=== PATIENT | male | born 1945 | race Caucasian/White ===

== ENCOUNTER → 2020-07-11 | Outpatient (CLI) | payer MEDICARE, OTHER ==
--- NOTE | 2020-07-11 13:41 | REP ---
INDICATION: ABDOMINAL PAIN, CONSTIPATION. COMPARISON: None. FINDINGS: Supine and upright views of the abdomen show the intestinal gas pattern to be nonspecific. Gas and stool is seen throughout the colon within the rectosigmoid region. The organ silhouettes insofar as delineated appear unremarkable. No abdominal calcific densities are seen within the abdomen or pelvis. The accompanying single frontal view of the chest shows no free subdiaphragmatic air, cardiomegaly, infiltrates or effusions. There is, however, a nodule in the right lung upper lobe superimposed over the anterior end of the 1st rib and the clavicle. IMPRESSION: Nonspecific intestinal gas pattern. Lung finding as described above. Contrast enhanced chest CT recommended <Electronically signed by Chalino Newman > 07/11/20 2229
== END ==
LOC: M WUC 13:19
PROVIDERS: ATTEND Physician Assistant
DX: R91.1 Solitary pulmonary nodule (principal); K59.00 Constipation, unspecified; R10.9 Unspecified abdominal pain

== ENCOUNTER 2024-11-24 17:54 | Emergency (ER) | payer MEDICARE, OTHER ==
[~2024-11-24] VITALS: Ht 182.9 cm; Wt 81.6 kg
[2024-11-24] MEDS ORDERED: LISI20TA33 PO (18:13)
[2024-11-24] MEDS ORDERED: SIMV10TA21 PO (18:13)
[2024-11-24] MEDS: ACETAMINOPHEN 325 MG TAB PO ONE (19:40)
[2024-11-24 22:16] LABS: KETONE, URINE AUTO RFX 1+ mg/dL (NEGATIVE); MUCUS, URINE RFX SMALL (NEGATIVE); NITRITE, URINE AUTO RFX NEGATIVE (NEGATIVE); RBC, URINE AUTO RFX 21 /HPF (0-3); SQUAM EPITHELIAL CELL UR AURFX 0 /HPF (0-6)
[2024-11-24 22:17] LABS: LEUKOCYTE ESTERASE UR AUTO RFX 2+ (NEGATIVE); WBC, URINE AUTO RFX 150 /HPF (0-3)
[2024-11-24 23:12] LABS: BASO # 0.1 10^3/uL (0.0-0.2); BASO % 0.4 % (0.0-1.0); EOS # 0.0 10^3/uL (0.0-0.5); EOS % 0.3 % (0.0-3.0); LYMPH # 1.2 10^3/uL (1.5-5.0); LYMPH % 7.6 % (24.0-44.0); MONO # 1.5 10^3/uL (0.0-0.8); MONO % 9.2 % (2.0-8.0); NEUTROPHILS # 13.1 10^3/uL (1.5-8.5); NEUTROPHILS % 82.2 % (36.0-66.0); PLATELET COUNT, AUTOMATED 193 10^3/uL (150-450)
[2024-11-24 23:43] LABS: CALCIUM LEVEL 8.6 MG/DL (8.3-10.6); CARBON DIOXIDE LEVEL 26.0 MMOL/L (20-31); CHLORIDE LEVEL 104.0 MMOL/L (98-107); CREATININE FOR GFR 1.03 MG/DL (0.70-1.30); GLOMERULAR FILTRATION RATE 73.4 (>35); POTASSIUM SERUM 4.1 MMOL/L (3.5-5.1); SODIUM LEVEL 138.0 MMOL/L (136-145)
[2024-11-25] MEDS: cefTRIAXone SOD 1 GM in DEXTROSE 5% (D5W) ADV/MINI-BAG 50 ML IV ONE (00:22)
[2024-11-25] MEDS ORDERED: CIPR500T39 PO (00:32)
[2024-11-25 01:17] VITALS: BP 124/61; TEMP 98.3; O2SAT 97
== END 2024-11-25 01:50 | disposition home or self-care (01) ==
LOC: M ED 17:54
DX: N39.0 Urinary tract infection, site not specified (principal); I10 Essential (primary) hypertension; E78.5 Hyperlipidemia, unspecified
CPT/HCPCS: 80048; 81001; 85025; 87088; 87186; 96365; 99284; J0696